=== PATIENT | male | born 2000 | race Caucasian/White ===

== ENCOUNTER → 2022-12-28 | Outpatient (CLI) | payer BC, SELFPAY ==
[2022-12-28 12:56] LABS: Hemoglobin A1c 5.8 % (3.8-5.6)
[2022-12-28 13:08] LABS: ALB/GLOB Ratio 0.9 RATIO (0.9-2.4); AST(SGOT) 24 U/L (15-37); Alanine Aminotransfer ALT/SGPT 46 U/L (16-61); Albumin, Serum 3.7 g/dL (3.2-5.0); Alkaline Phosphatase 77 U/L (45-117); Anion Gap 9 (5-15); BUN 11 mg/dL (7-18); Chloride 102 mmol/L (98-107); Cholesterol 105 mg/dL (200); Creatinine, Serum 0.78 mg/dL (0.70-1.30); EST Glomerular Filtration Rate 131 mL/min (>60); Est Glom Filt Rate - Afr Amer 158 mL/min (>60); Globulin 4.1 g/dL (2.2-4.2); Glucose 107 mg/dL (74-106); High Density Lipoprotein 31 mg/dL; Potassium 3.9 mmol/L (3.5-5.1); Protein, Total 7.8 g/dL (6.4-8.2); Sodium Level 138 mmol/L (136-145); Thyroid Stim Hormone (TSH) 1.69 uIU/mL (0.358-3.74); Triglycerides 112 mg/dL; Very Low Density Lipoprotein 22 mg/dL (5-40)
== END | disposition home or self-care (01) ==
PROVIDERS: PCP Pediatrics; Visit Provider Family Medicine
DX: E66.01 Morbid (severe) obesity due to excess calories (principal); Z13.220 Encounter for screening for lipoid disorders
CPT/HCPCS: 36415; 80053; 80061; 83036; 84443